=== PATIENT | male | born 1945 | race Caucasian/White ===

== ENCOUNTER 2022-01-01 23:08 | Emergency (ER) | payer OTHER ==
[~2022-01-01] VITALS: Ht 182.9 cm; Wt 68.0 kg
[2022-01-01 23:49] VITALS: BP_SYST 116
--- NOTE | 2022-01-02 00:36 | NUR ---
ANIBAL Kidd at bedside examining patient.
--- NOTE | 2022-01-02 01:34 | NUR ---
Pt complaining of genital pain Hx of urinary retention Suprapubic catheter noted Patency assessed 100CC a Addendum: 01/02/22 at 0140 by PB Sterile water 100CC pushed and 100CC withdrawn
[2022-01-02 03:20] LABS: BASOPHILS # (AUTO) 0.1 K/uL (0.0-0.2); BASOPHILS % (AUTO) 1.1 % (0.0-2.0); EOSINOPHILS # (AUTO) 0.1 K/uL (0.0-0.4); EOSINOPHILS % (AUTO) 1.9 % (0.0-4.0); HEMATOCRIT 34.2 % (36-54); HEMOGLOBIN 11.5 g/dL (14.0-18.0); LYMPHOCYTES % (AUTO) 12.8 % (20.5-51.5); MEAN CORPUSCULAR HEMOGLOBIN 31 pg (27-31); MEAN CORPUSCULAR HGB CONC 34 % (32-36); MEAN CORPUSCULAR VOLUME 91 fL (79.0-98.0); MONOCYTES # (AUTO) 0.5 K/uL (0.0-1.0); MONOCYTES % (AUTO) 6.5 % (1.7-9.3); NEUTROPHILS # (AUTO) 6.2 K/uL (1.8-7.7); NEUTROPHILS % (AUTO) 77.7 % (40.0-70.0); PLATELET COUNT (AUTO) 209 K/uL (130-430); RED BLOOD CELL COUNT(AUTO) 3.76 MIL/uL (4.2-6.2); RED CELL DISTRIBUTION WIDTH 14.1 % (9.0-15.0)
[2022-01-02 03:32] LABS: ANION GAP 6 (5-15); CALCIUM 8.2 mg/dL (8.4-11.0); CHLORIDE 104 mmol/L (98-107); CREATININE 1.18 mg/dL (0.55-1.30); GLUCOSE 114 mg/dL (70-99); POTASSIUM 4.5 mmol/L (3.5-5.1); SODIUM SERUM 136 mmol/L (136-145); UREA NITROGEN, BLOOD 30 mg/dL (8-21)
[2022-01-02 03:37] LABS: INR 1.2 (0.80-1.20)
[2022-01-02 03:42] LABS: ALANINE AMINOTRANSFERASE 18 U/L (12-78); ALBUMIN 3.2 g/dL (3.4-4.8); ASPARTATE AMINOTRANSFERASE 22 U/L (10-37); TOTAL BILIRUBIN 0.4 mg/dL (0.0-1.0)
--- NOTE | 2022-01-02 04:40 | NUR ---
Pt resting comfortably in bed AOX4 VSS Able to make needs known verbally responsive NAD at this time Will continue to monitor
[2022-01-02] MEDS ORDERED: MAG HYDROX/AL HYDROX/SIMETH 30 ML, LIDOCAINE VISCOUS 2% 15ML (PO) 15 ML, DICYCLOMINE HC... PO ONE ×3 (05:15)
[2022-01-02] MEDS ORDERED: MAG-AL HYDROX/SIMETH 30 ML UDC ONE (05:27)
[2022-01-02 06:01] LABS: BILIRUBIN,URINE NEGATIVE (NEGATIVE); BLOOD, URINE 3+ (NEGATIVE); CLARITY/URINE CLEAR (CLEAR); COLOR,URINE YELLOW (YELLOW); GLUCOSE,URINE NEGATIVE (NEGATIVE); KETONES,URINE NEGATIVE (NEGATIVE); LEUKOCYTE ESTERASE ,URINE 1+ (NEGATIVE); NITRITE, URINE POSITIVE (NEGATIVE); PROTEIN URINE 2+ (NEGATIVE); UROBILINOGEN,URINE 0.2 (0.2-1.0)
[2022-01-02 06:12] LABS: BACTERIA,URINE MANY /HPF (None Seen); CALCIUM OXALATE CRYSTALS,UR 0-10 /HPF (None Seen); WBC,URINE 20-50 /HPF (0-3)
[2022-01-02 06:13] LABS: URINE AMORPHOUS URATE 1+ /HPF (None Seen)
[2022-01-02 06:54] LABS: HEMATOCRIT 34.3 % (36-54); HEMOGLOBIN 11.5 g/dL (14.0-18.0); MEAN CORPUSCULAR HEMOGLOBIN 30 pg (27-31); MEAN CORPUSCULAR HGB CONC 34 % (32-36); MEAN CORPUSCULAR VOLUME 91 fL (79.0-98.0); PLATELET COUNT (AUTO) 207 K/uL (130-430); RED BLOOD CELL COUNT(AUTO) 3.79 MIL/uL (4.2-6.2); RED CELL DISTRIBUTION WIDTH 14.5 % (9.0-15.0); WHITE BLOOD COUNT (AUTO) 7.9 K/uL (4.8-10.8)
--- NOTE | 2022-01-02 07:15 | NUR ---
ASSUMED CARE OF PT AT THIS TIME. PT AWAITING LAB RESULTS FOR DISPO. PT REPORTS NAUSEA X FEW HRS, NO VOMITING. +LOWER ABD PAIN 02/03 WHICH PT STATES IS IMPROVED SINCE ARRIVING. PT STATES ABD PAIN IS CHRONIC. VSS. RESP EVEN AND UNLABORED. WILL CONT TO MONITOR
[2022-01-02] MEDS ORDERED: keflex PO (07:17)
--- NOTE | 2022-01-02 07:19 | NUR ---
PATIENT FAMILY CONTACT SISTER MAGO CAVANAUGH [phone]
[2022-01-02] MEDS ORDERED: ONDANSETRON 4 MG ODT TAB PO ONE (07:30)
[2022-01-02 07:31] VITALS: BP_SYST 137
--- NOTE | 2022-01-02 07:49 | NUR ---
DC INSTRUCTIONS DISCUSSED WITH PT AND ABX RX. QUESTIONS ANSWERED. VERB UNDERSTANDING. ADVISED TO FOLLOW UP WITH PMD IN 2-3 DAYS AT [place]. VSS. NO DISTRESS. PT IS STABLE FOR DC HOME. SISTER IS PICKING PT UP, ESCORTED TO LOBBY IN WHEELCHAIR
== END 2022-01-02 07:49 | disposition home or self-care (01) ==
LOC: SED 23:08
DX: T83.83XA Hemorrhage due to genitourinary prosthetic devices, implants and grafts, initial encounter (principal); N48.29 Other inflammatory disorders of penis; N32.0 Bladder-neck obstruction; I10 Essential (primary) hypertension; Z87.898 Personal history of other specified conditions
CPT/HCPCS: 36415; 71045; 72191; 74175; 74176; 76376; 80053; 81000; 83051; 83605; 84484; 85014; 85025; 85048; 85049; 85610; 85730; 86886; 86900; 86901; 87040; 87086; 99285; Q0162; Q9967; 87186-TC; 93005

== ENCOUNTER 2022-02-21 20:34 | Inpatient (IN) | payer OTHER ==
[~2022-02-21] VITALS: Ht 182.9 cm; Wt 64.4 kg
[~2022-02-21 20:34] MED LIST: keflex PO
[2022-02-21 20:58] VITALS: BP_SYST 135
--- NOTE | 2022-02-21 21:03 | NUR ---
BIB BLS FROM [facility] D/T TO HOSPICE CARE. 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 PT ALSO C/O NAUSEA.
--- NOTE | 2022-02-21 21:15 | NUR ---
[facility] AMB #[id number]. REPORT FROM EMT/ PT FROM [facility]. "combative with hospice nurse today". "HE THINKS (MORPHINE) NOT MAKING HIM FEEL GOOD. C/O NAUSEA, AND SOB ON ARRIVAL WITH EMT. PT YOCHA DEHE, SLOW TO ANSWER QUESTIONS, APPEARS ANXIOUS, HYPERVENTILATING. 16 [address] C[address] IN PL[address] WITH DEBORAH, CLOUDY URINE OBSERVED. EMT HEARD PT ON HIS CELLPHONE "WITH SISTER, THAT THEY TOOK ME AGAINST MY WILL". PT A/O X3 WITH YOCHA DEHE DIFFICULTIES.
[2022-02-21] MEDS ORDERED: DOCU-144 PO (21:42)
[2022-02-21] MEDS ORDERED: LORA-258 PO (21:42)
[2022-02-21] MEDS ORDERED: [UNRECOGNIZED DRUG - OTHER] (21:48)
[2022-02-21] MEDS ORDERED: HYDR-3610 PO (21:48)
[2022-02-21] MEDS ORDERED: TEMA15CA5 PO (21:48)
[2022-02-21] MEDS ORDERED: HYOS0.1275 PO (21:48)
--- NOTE | 2022-02-21 21:54 | NUR ---
COVID NASAL SWAB COLLECTED AND SENT TO LAB, LAB AT BEDSIDE WITH BLOOD COLLECTION. PORTABLE CXR DONE
[2022-02-21 21:57] LABS: BASOPHILS # (AUTO) 0.1 K/uL (0.0-0.2); BASOPHILS % (AUTO) 0.8 % (0.0-2.0); EOSINOPHILS % (AUTO) 0.6 % (0.0-4.0); HEMATOCRIT 39.3 % (36-54); HEMOGLOBIN 12.9 g/dL (14.0-18.0); LYMPHOCYTES # (AUTO) 1.6 K/uL (1.0-5.5); LYMPHOCYTES % (AUTO) 21.2 % (20.5-51.5); MEAN CORPUSCULAR HEMOGLOBIN 29 pg (27-31); MEAN CORPUSCULAR HGB CONC 33 % (32-36); MEAN CORPUSCULAR VOLUME 87 fL (79.0-98.0); MONOCYTES # (AUTO) 0.7 K/uL (0.0-1.0); MONOCYTES % (AUTO) 9.6 % (1.7-9.3); NEUTROPHILS # (AUTO) 5.2 K/uL (1.8-7.7); NEUTROPHILS % (AUTO) 67.8 % (40.0-70.0); PLATELET COUNT (AUTO) 146 K/uL (130-430); RED BLOOD CELL COUNT(AUTO) 4.52 MIL/uL (4.2-6.2); RED CELL DISTRIBUTION WIDTH 19.4 % (9.0-15.0); WHITE BLOOD COUNT (AUTO) 7.6 K/uL (4.8-10.8)
--- NOTE | 2022-02-21 22:00 | NUR ---
ALICIA, SISTER, CALLED FOR UPDATE [phone]
[2022-02-21 22:15] LABS: ANION GAP 11 (5-15); CALCIUM 9.2 mg/dL (8.4-11.0); CHLORIDE 101 mmol/L (98-107); GLUCOSE 111 mg/dL (70-99); POTASSIUM 4.5 mmol/L (3.5-5.1); SODIUM SERUM 135 mmol/L (136-145); UREA NITROGEN, BLOOD 24 mg/dL (8-21)
[2022-02-21 22:20] LABS: ALANINE AMINOTRANSFERASE 16 U/L (12-78); ALBUMIN 3.1 g/dL (3.4-4.8); ASPARTATE AMINOTRANSFERASE 19 U/L (10-37); TOTAL BILIRUBIN 1.1 mg/dL (0.0-1.0)
--- NOTE | 2022-02-22 00:08 | NUR ---
PT MOVED TO BED #4 FROM #H-2. REPORT TO ANTONIA PIERCE. PT STABLE
[2022-02-22] MEDS ORDERED: FUROSEMIDE 100 MG/10 ML VIAL IVP ONE (00:30)
--- NOTE | 2022-02-22 00:35 | NUR ---
MONO RN RETURN FROM CT SCAN VIA [facility] WITH TECH. GABRIEL BARBER AT [facility]
--- NOTE | 2022-02-22 01:06 | NUR ---
Patient in bed 4 at this time. Pt states SOB. Given Lasix at this time. Pt has mild tachypnea, yet on NC@2L. Pt has 16 Fr mauricio catheter from home. Normal skin color for ethnicity. Pt educated on hospice care.
--- NOTE | 2022-02-22 01:48 | NUR ---
Pt to CT at this time
--- NOTE | 2022-02-22 02:28 | NUR ---
Pt to bedside commode at this time.
--- NOTE | 2022-02-22 02:51 | NUR ---
Admit bed requested Patient will be admitted to care of . Admitted to TELEMETRY unit. Diagnosis CHF EXACERBATION Inpatient (Yes or No) YES Observation (Yes or No) NO Orientation concerns or request close to nursing station (Yes or No) NO Covid Status NEG On vent or bipap NO Isolation requirements NO Needs a sitter NO From Home (Yes or if No enter name of facility) YES Requires Dialysis (Yes or No) NO Med Rec Completed (Yes of No) YES
[2022-02-22] MEDS ORDERED: cefTRIAXone 1 GM in D5W 50 ML IV ONE (03:00)
[2022-02-22] MEDS ORDERED: AZITHROMYCIN 500 MG in NS 250 ML IV ONE (03:00)
[2022-02-22] MEDS ORDERED: HEPARIN 25,000 UNITS/D5W 250ML 250 ML IV PRN ×2 (03:30→18:00)
[2022-02-22] MEDS ORDERED: DOCUSATE SODIUM 100 MG CAPSULE PO ONE (03:30)
[2022-02-22 04:17] VITALS: BP_SYST 134
[2022-02-22] MEDS ORDERED: POTASSIUM CHLORIDE 20 MEQ TAB.PRT.SR PO PRN (04:30)
[2022-02-22] MEDS ORDERED: DOCUSATE SODIUM 100 MG CAPSULE PO PRN (04:30)
[2022-02-22] MEDS ORDERED: MAGNESIUM SULFATE 50 ML IV PRN (04:30)
[2022-02-22] MEDS ORDERED: ACETAMINOPHEN 325 MG TABLET PO PRN (04:30)
[2022-02-22] MEDS ORDERED: MUPIROCIN 2% TOPICAL OINTMENT 22 GM NS PRN (04:30)
[2022-02-22] MEDS ORDERED: MORPHINE 2 MG/ML INJ. SYRINGE IVP PRN ×2 (04:30)
[2022-02-22] MEDS ORDERED: ONDANSETRON HCL 4 MG/2 ML VIAL IVP PRN (04:30)
[2022-02-22] MEDS ORDERED: NALOXONE HCL 0.4 MG/ML AMP (NARCAN) IVP PRN ×2 (04:30)
--- NOTE | 2022-02-22 04:35 | NUR ---
Patient admitted to room 101 (a). Assessment completed SOB noted. O2 at 4 liters. No complaint of pain or discomfort. Will continue to monitor.
[2022-02-22 06:33] LABS: BASOPHILS % (AUTO) 0.7 % (0.0-2.0); EOSINOPHILS % (AUTO) 0.5 % (0.0-4.0); HEMOGLOBIN 12.2 g/dL (14.0-18.0); LYMPHOCYTES # (AUTO) 1.5 K/uL (1.0-5.5); LYMPHOCYTES % (AUTO) 21.2 % (20.5-51.5); MEAN CORPUSCULAR HEMOGLOBIN 29 pg (27-31); MEAN CORPUSCULAR HGB CONC 33 % (32-36); MEAN CORPUSCULAR VOLUME 87 fL (79.0-98.0); MONOCYTES # (AUTO) 0.6 K/uL (0.0-1.0); MONOCYTES % (AUTO) 8.2 % (1.7-9.3); NEUTROPHILS # (AUTO) 4.8 K/uL (1.8-7.7); NEUTROPHILS % (AUTO) 69.4 % (40.0-70.0); PLATELET COUNT (AUTO) 128 K/uL (130-430); RED BLOOD CELL COUNT(AUTO) 4.27 MIL/uL (4.2-6.2); RED CELL DISTRIBUTION WIDTH 18.9 % (9.0-15.0)
[2022-02-22 06:44] LABS: INR 1.4 (0.80-1.20); PROTHROMBIN TIME 13.5 SECS (9.5-12.5)
[2022-02-22 06:48] LABS: ANION GAP 11 (5-15); CALCIUM 9.4 mg/dL (8.4-11.0); CHLORIDE 101 mmol/L (98-107); CREATININE 1.28 mg/dL (0.55-1.30); GLUCOSE 107 mg/dL (70-99); SODIUM SERUM 137 mmol/L (136-145); UREA NITROGEN, BLOOD 25 mg/dL (8-21)
--- NOTE | 2022-02-22 06:49 | NUR ---
Patient educated on bilateral emboli in the lungs. Instructed to stay in bed. Patient refusing to stay in bed. Will continue to monitor.
--- NOTE | 2022-02-22 07:12 | NUR ---
Patient found bedside the bed on his knees. No injuries noted. Vital 97.9 78 22 143/84. Bed alarm was sounding when this nurse entered the room. This nurse instructed the patient to stay in the bed. Patient acknowledged teaching. Will continue to monitor.
[2022-02-22 08:00] VITALS: BP_SYST 135
--- NOTE | 2022-02-22 09:00 | NUR ---
MEDS DR BLANCO INFORMED OF LATEST PT, PTT AND INR. HE ORDERED TO STOP HEPARIN DRIP.
[2022-02-22] MEDS: ASPIRIN 81 MG TAB.CHEW PO SCH (09:23)
[2022-02-22] MEDS: CARVEDILOL 3.125 MG TABLET (COREG) PO SCH ×2 (09:23→20:11)
[2022-02-22] MEDS: FUROSEMIDE 40 MG/4 ML VIAL IVP SCH (09:24)
--- NOTE | 2022-02-22 09:45 | NUR ---
CONSULTATION PAGED/CALLED Reason for Consultation: [] Pulmonology Person Who was Notified: [] here in [facility]/Dr. Booth aware Consulting Physician: [] Dr. Booth Airport Operations Officer Specialty: []Pulmonary Ordering Physician: [Dr. Rainey
[2022-02-22 12:00] VITALS: BP_SYST 127
[2022-02-22] MEDS: BISACODYL 10 MG/SUPPOSITORY RC PRN (13:52)
--- NOTE | 2022-02-22 15:45 | NUR ---
ANXIETY SEEN PT CHANGING INTO HIS STREET CLOTHES, PT UNABLE TO GIVE REASON WHY HE WAS DOING IT. ALL LINENS CHANGED, [facility] G[facility] PROVIDED.
[2022-02-22 16:00] VITALS: BP_SYST 121
--- NOTE | 2022-02-22 16:30 | NUR ---
LEASING CONSULTANT AT BEDSIDE. U/S OF BOTH LUNGS DONE.
--- NOTE | 2022-02-22 17:17 | NUR ---
MD DR BLANCO IN THE NURSING STATION, AWARE OF CHEST ULTRASOUND RESULT
--- NOTE | 2022-02-22 17:23 | NUR ---
TOMAS YEE WAS CALLED, RE: US RESULTS. SPOKE TO MELANIE.
--- NOTE | 2022-02-22 17:30 | NUR ---
IV PT PULLED OUT HIS IV FROM RIGHT A/C, CONFUSED, STATED "IT'S JUST THERE FOR NOTHING". PT REORIENTED TO PURPOSE. WILL ATTEMPT IV INSERTION.
--- NOTE | 2022-02-22 17:52 | NUR ---
MD DR YEE RETURNED THE CALL. NEW ORDERS RECEIVED. PT TO BE STARTED ON HEPARIN DRIP.
--- NOTE | 2022-02-22 19:27 | NUR ---
PAGED DR. URBINA I SPOKE TO BETTY UNDERWOOD
[2022-02-22 20:00] VITALS: BP_SYST 126
[2022-02-22] MEDS: LORazepam 2 MG/ML VIAL IVP PRN (20:12)
[2022-02-22] MEDS ORDERED: HEPARIN SODIUM,PORCINE 5,000 UNITS/ML VIAL SUBCUT SCH (21:00)
[2022-02-22] MEDS ORDERED: HEPARIN SODIUM,PORCINE 2000 UNITS/0.4 ML BOLUS IVP PRN (21:15)
[2022-02-22] MEDS ORDERED: *HEPARIN PER PHARMACY XX ONE (21:15)
[2022-02-22] MEDS ORDERED: HEPARIN SODIUM,PORCINE 3000 UNITS/0.6 ML BOLUS IVP PRN (21:15)
[2022-02-22] MEDS ORDERED: HEPARIN SODIUM PORCINE IVP ONE (21:45)
[2022-02-22] MEDS ORDERED: HEPARIN 25,000 UNITS/D5W 250ML 250 ML IV ONE (22:10)
[2022-02-22] MEDS: HEPARIN 25,000 UNITS/D5W 250ML 250 ML IV PRN (22:15)
[2022-02-23] VITALS: BP_SYST 130
--- NOTE | 2022-02-23 01:30 | NUR ---
Patient in bed. Continues to climb out of the bed. No acute distress noted. Heparin drip infusing without difficulty. Will continue to monitor.
--- NOTE | 2022-02-23 01:37 | NUR ---
Dr. Booth made aware of thoracentesis scheduled for Friday.
--- NOTE | 2022-02-23 06:37 | NUR ---
Blood sugar recheck 136.
--- NOTE | 2022-02-23 07:09 | NUR ---
PTT pending. Will endorse to a.m. shift.
[2022-02-23 07:13] LABS: BASOPHILS % (AUTO) 0.3 % (0.0-2.0); EOSINOPHILS # (AUTO) 0.2 K/uL (0.0-0.4); EOSINOPHILS % (AUTO) 1.9 % (0.0-4.0); HEMATOCRIT 36.1 % (36-54); HEMOGLOBIN 11.9 g/dL (14.0-18.0); LYMPHOCYTES # (AUTO) 1.6 K/uL (1.0-5.5); LYMPHOCYTES % (AUTO) 18.6 % (20.5-51.5); MEAN CORPUSCULAR HEMOGLOBIN 29 pg (27-31); MEAN CORPUSCULAR HGB CONC 33 % (32-36); MEAN CORPUSCULAR VOLUME 87 fL (79.0-98.0); MONOCYTES # (AUTO) 0.6 K/uL (0.0-1.0); MONOCYTES % (AUTO) 7.2 % (1.7-9.3); NEUTROPHILS # (AUTO) 6.2 K/uL (1.8-7.7); PLATELET COUNT (AUTO) 129 K/uL (130-430); RED BLOOD CELL COUNT(AUTO) 4.16 MIL/uL (4.2-6.2); RED CELL DISTRIBUTION WIDTH 19.3 % (9.0-15.0); WHITE BLOOD COUNT (AUTO) 8.6 K/uL (4.8-10.8)
[2022-02-23 07:40] LABS: ANION GAP 10 (5-15); CALCIUM 9.2 mg/dL (8.4-11.0); CHLORIDE 100 mmol/L (98-107); CREATININE 1.19 mg/dL (0.55-1.30); GLUCOSE 90 mg/dL (70-99); POTASSIUM 3.2 mmol/L (3.5-5.1); SODIUM SERUM 139 mmol/L (136-145); UREA NITROGEN, BLOOD 27 mg/dL (8-21)
[2022-02-23 08:00] VITALS: BP_SYST 104
[2022-02-23] MEDS: CARVEDILOL 3.125 MG TABLET (COREG) PO SCH ×2 (08:16→21:00)
[2022-02-23] MEDS: FUROSEMIDE 40 MG/4 ML VIAL IVP SCH (08:17)
[2022-02-23] MEDS: ASPIRIN 81 MG TAB.CHEW PO SCH (08:17)
[2022-02-23] MEDS: LORazepam 2 MG/ML VIAL IVP PRN ×4 (08:18→22:59)
[2022-02-23 12:00] VITALS: BP_SYST 108
[2022-02-23 16:00] VITALS: BP_SYST 112
[2022-02-23] MEDS: HEPARIN 25,000 UNITS/D5W 250ML 250 ML IV PRN (18:13)
[2022-02-24 00:18] VITALS: BP_SYST 125
--- NOTE | 2022-02-24 03:51 | NUR ---
Pt alert to person. pt continues on Tele monitor pt rhythm v paced . Pt previous reading is also paced. 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 pt continues on 2l 02 sating 98%. Pt is incontinent of bladder and uses a supra pubic cath urine clean. Continues on heparin gtt. PTT labs pending . pt bp decreased held coreg. pt has increased anxiety adm ativan with positive effect. pt pulled iv out of arm. new Iv to right wrist.
[2022-02-24 08:00] VITALS: BP_SYST 108
--- NOTE | 2022-02-24 08:00 | NUR ---
OPENING NOTES: PATIENT RESTING IN BED. BREATHING EVEN AND NON LABORED TO O2 AT 2L/NC. HEPARIN DRIP INFUSING. BED LOCKED, ALARM ON AND IN LOWEST POSITION. FALL, SAFETY AND ASPIRATION MEASURES REINFORCED. CALL LIGHT WITHIN REACH.
[2022-02-24 08:18] LABS: BASOPHILS % (AUTO) 0.5 % (0.0-2.0); EOSINOPHILS # (AUTO) 0.3 K/uL (0.0-0.4); HEMATOCRIT 36.4 % (36-54); HEMOGLOBIN 11.9 g/dL (14.0-18.0); LYMPHOCYTES # (AUTO) 1.7 K/uL (1.0-5.5); LYMPHOCYTES % (AUTO) 19.8 % (20.5-51.5); MEAN CORPUSCULAR HEMOGLOBIN 28 pg (27-31); MEAN CORPUSCULAR HGB CONC 33 % (32-36); MEAN CORPUSCULAR VOLUME 87 fL (79.0-98.0); MONOCYTES # (AUTO) 0.6 K/uL (0.0-1.0); MONOCYTES % (AUTO) 7.2 % (1.7-9.3); NEUTROPHILS # (AUTO) 5.9 K/uL (1.8-7.7); NEUTROPHILS % (AUTO) 69.5 % (40.0-70.0); PLATELET COUNT (AUTO) 136 K/uL (130-430); RED CELL DISTRIBUTION WIDTH 19.3 % (9.0-15.0); WHITE BLOOD COUNT (AUTO) 8.5 K/uL (4.8-10.8)
--- NOTE | 2022-02-24 08:40 | NUR ---
Dietitian Recommendations - continue cardiac/low fat diet per MD order - consider Ensure Enlive once/d to supplement diet Please refer to nutrition assessment for details. KALINA MONTERO
[2022-02-24] MEDS: ASPIRIN 81 MG TAB.CHEW PO SCH (08:47)
[2022-02-24] MEDS: CARVEDILOL 3.125 MG TABLET (COREG) PO SCH ×2 (08:47→20:21)
[2022-02-24] MEDS: FUROSEMIDE 40 MG/4 ML VIAL IVP SCH (08:52)
[2022-02-24 09:01] LABS: CALCIUM 8.9 mg/dL (8.4-11.0); GLUCOSE 83 mg/dL (70-99); UREA NITROGEN, BLOOD 25 mg/dL (8-21)
[2022-02-24 09:42] LABS: ANION GAP 9 (5-15); CHLORIDE 99 mmol/L (98-107); SODIUM SERUM 138 mmol/L (136-145)
[2022-02-24 10:27] LABS: POTASSIUM 2.9 mmol/L (3.5-5.1)
--- NOTE | 2022-02-24 10:46 | NUR ---
ATTENDING MD DR ALONZO WAS CALLED, RE: LOW K LEVEL OF 2.9.
--- NOTE | 2022-02-24 11:00 | NUR ---
HIGH ALERT NOTE: Called Dr. ALONZO back [phone] at identified within the medical roster to verify physician authenticity. ORDER KDUR 60 MEQ PO ONCE. REPORTED TO DR. ALONZO THE K 2.9.
[2022-02-24 12:00] VITALS: BP_SYST 106
[2022-02-24] MEDS ORDERED: POTASSIUM CHLORIDE 20 MEQ TAB.PRT.SR PO ONE (12:00)
[2022-02-24] MEDS ORDERED: LACTULOSE 20 GM/30 ML UDC PO ONE (14:30)
--- NOTE | 2022-02-24 15:21 | NUR ---
CM: DCP done with Abhijti, dtr: stated pt is DNR and was with [facility] . She will fax the signed POA to CM dept in am. RN and CN made aware.
--- NOTE | 2022-02-24 15:40 | NUR ---
RN NOTE/FALL: PATIENT CLIMBED OUT OF BED W/ BED ALARM ON. THE CHARGE NURSE/CN (REILLY) WENT TO THE ROOM AND SAW THE PATIENT STANDING WHILE HOLDING THE BED RAILS. THE CN TOLD THE PATIENT NOT TO MOVE BUT SLOWLY HE SAT ON THE FLOOR. THE CN ASSISTED HIM TO THE CHAIR AND BACK TO THE BED. ASSESSMENT DONE AND NO INJURY NOTED. STABLE VITAL SIGNS. INCIDENT HAPPENED AT 1540.
[2022-02-24 16:00] VITALS: BP_SYST 103
--- NOTE | 2022-02-24 16:35 | NUR ---
DR. ALONZO AND ORTIZ, the daughter INFORMED (RE: Fall): DR. ALONZO INFORMED ABOUT THE FALL INCIDENT (AT 1635). NO NEW ORDER MADE. SPOKE TO THE DAUGHTER ABOUT THE INCIDENT AT 1640)
[2022-02-24 19:00] VITALS: BP_SYST 113
--- NOTE | 2022-02-24 19:20 | NUR ---
CLOSING NOTES: PATIENT RESTING IN BED. NO S/S OF ACUTE DISTRESS NOTED. BED LOCKED, ALARM ON AND IN LOWEST POSITION. FALL AND SAFETY MEASURES PROVIDED. CALL LIGHT WITHIN REACH. NEEDS MET THROUGHOUT SHIFT.
[2022-02-24 20:00] VITALS: BP_SYST 113
--- NOTE | 2022-02-24 20:00 | NUR ---
CRITICAL LAB: SULAIMAN from Laboratory called with critical lab value K 2.9. Medical record number and patient name verified. Read back of values done. DR. ALONZO notified of value. NEW order given at this time. Addendum: 02/24/22 at 2002 by Kasey Aguayo RN WRONG ENTRY:
[2022-02-24] MEDS: LACTULOSE 20 GM/30 ML UDC PO SCH (20:20)
[2022-02-24] MEDS: DOCUSATE SODIUM 100 MG CAPSULE PO SCH (20:21)
[2022-02-24] MEDS: ZOLPIDEM TARTRATE 5 MG TABLET PO PRN (20:22)
--- NOTE | 2022-02-24 20:25 | NUR ---
Morphine 2mg IV push witness bu Carlos Ritter Rn for administration
[2022-02-24] MEDS: LORazepam 2 MG/ML VIAL IVP PRN (23:44)
[2022-02-25] MEDS ORDERED: HEPARIN 25,000 UNITS/D5W 250ML 250 ML IV ONE (01:51)
[2022-02-25 06:00] VITALS: BP_SYST 110
--- NOTE | 2022-02-25 06:52 | NUR ---
TOMAS COLEMAN CONCRETE FINISHER APPRENTICE DR BEDOLLA WAS CALLED RE: TO CONTINUE HEPARIN OR NOT, THORACENTESIS ORDERED TODAY. SPOKE TO MAGEN.
[2022-02-25 07:41] VITALS: BP_SYST 104
[2022-02-25 07:46] LABS: BASOPHILS % (AUTO) 0.5 % (0.0-2.0); EOSINOPHILS # (AUTO) 0.3 K/uL (0.0-0.4); EOSINOPHILS % (AUTO) 4.4 % (0.0-4.0); HEMATOCRIT 35.2 % (36-54); HEMOGLOBIN 11.5 g/dL (14.0-18.0); LYMPHOCYTES # (AUTO) 1.8 K/uL (1.0-5.5); LYMPHOCYTES % (AUTO) 24.7 % (20.5-51.5); MEAN CORPUSCULAR HEMOGLOBIN 28 pg (27-31); MEAN CORPUSCULAR HGB CONC 33 % (32-36); MEAN CORPUSCULAR VOLUME 87 fL (79.0-98.0); MONOCYTES # (AUTO) 0.7 K/uL (0.0-1.0); MONOCYTES % (AUTO) 9.4 % (1.7-9.3); NEUTROPHILS # (AUTO) 4.5 K/uL (1.8-7.7); PLATELET COUNT (AUTO) 139 K/uL (130-430); RED BLOOD CELL COUNT(AUTO) 4.07 MIL/uL (4.2-6.2); RED CELL DISTRIBUTION WIDTH 18.7 % (9.0-15.0); WHITE BLOOD COUNT (AUTO) 7.3 K/uL (4.8-10.8)
[2022-02-25] MEDS: FUROSEMIDE 40 MG/4 ML VIAL IVP SCH (09:00)
[2022-02-25] MEDS: CARVEDILOL 3.125 MG TABLET (COREG) PO SCH ×2 (09:00→21:11)
[2022-02-25 09:19] LABS: ALANINE AMINOTRANSFERASE 11 U/L (12-78); ANION GAP 8 (5-15); ASPARTATE AMINOTRANSFERASE 21 U/L (10-37); CALCIUM 8.9 mg/dL (8.4-11.0); CHLORIDE 103 mmol/L (98-107); CREATININE 1.15 mg/dL (0.55-1.30); GLUCOSE 84 mg/dL (70-99); POTASSIUM 3.4 mmol/L (3.5-5.1); SODIUM SERUM 143 mmol/L (136-145); TOTAL BILIRUBIN 1.2 mg/dL (0.0-1.0); UREA NITROGEN, BLOOD 26 mg/dL (8-21)
--- NOTE | 2022-02-25 09:31 | NUR ---
PER ANTONIA GARCIA, INFORMED RADIOLOGY THAT US THORACENTESIS IS ON HOLD. THERE IS ONLY LITTLE FLUID IN THE LUNGS, PER TOMAS QUEEN. SPOKE TO SHUN IN RADIOLOGY.
[2022-02-25] MEDS: ASPIRIN 81 MG TAB.CHEW PO SCH (09:40)
[2022-02-25] MEDS: DOCUSATE SODIUM 100 MG CAPSULE PO SCH ×2 (09:40→21:10)
[2022-02-25] MEDS: LACTULOSE 20 GM/30 ML UDC PO SCH ×3 (09:41→21:10)
[2022-02-25] MEDS ORDERED: COR3.125 PO (11:08)
[2022-02-25] MEDS ORDERED: ASA81 PO (11:08)
[2022-02-25] MEDS ORDERED: APIX5TAB4 PO (11:08)
[2022-02-25] MEDS ORDERED: FURO-149 PO (11:08)
[2022-02-25 12:10] VITALS: BP_SYST 106
[2022-02-25] MEDS: BISACODYL 10 MG/SUPPOSITORY RC PRN (13:29)
--- NOTE | 2022-02-25 14:12 | NUR ---
CM: Code status changed to DNR per dr. Rainey. Dtr/Abhijit brought in the POA documents, Gina/RN aware. I discussed dcp home /resume hospice care with dtr. She stated that she can not take pt home and wanting pt to snf with hospice care. I spoke with [facility], stated the contracted snf is [facility] where is no bed available. Dtr wants pt in local SNF by [facility] and willing to change hospice company to one that works with the accepting snf. Dtr preferred #1 [facility],#2 [facility]. She will get more info from [facility]. CM faxed FS to [facility] fax# [phone], tel # [phone]. ROSALINE Pan made aware and she will continue the process.
--- NOTE | 2022-02-25 16:07 | NUR ---
KID CLUB ATTENDANT/DISCHARGE PLANNING ACSW Viviane contacted [facility], according to Bhumika they can do an JEROME with [facility], but placement would be private pay with deposit due upfront. She stated at this time she would decline referral. ACSW Viviane received call back from with [facility] requesting additional documents. ACSW faxed H & P and labs to . ACSW will continue to be available as needed
[2022-02-25 16:30] VITALS: BP_SYST 110
--- NOTE | 2022-02-25 18:43 | NUR ---
PER RN DAISHA, I WAS ORDERED TO FAX TO [facility] THE H AND P/ THE HOSPICE ORDER ATTENTION TO VILLA.
[2022-02-25 20:00] VITALS: BP_SYST 94
--- NOTE | 2022-02-25 20:00 | NUR ---
PATIENT RESTING IN BED, A/O X 2 WITH CONFUSION OBSERVED. BREATHING IS EVEN AND NON-LABORED, PT NOT WEARING HIS NASAL CANNULA WITH SPO2 OF 97-98%. HEPARIN DRIP ALREADY STOPPED BY OUTGOING RN. NO S/S OF ACTIVE BLEEDING. FALL, SAFETY AND ASPIRATION MEASURES REINFORCED. CALL LIGHT WITHIN REACH. Addendum: 02/26/22 at 0318 by [facility] housecalls nurse 21:00. PT'S POTASSIUM LEVEL EARLIER TODAY WAS 3.4, PT REFUSED PRN POTASSIUM SUPPLEMENT IF POTASSIUM IS BELOW 3.5. HE ALSO REFUSED THE LACTULOSE. HEAD MEN'S GOLF COACH EXPLAINED THE IMPORTANCE OF TAKING THE ORDERED MEDICATION ESPECIALLY PT HAD A HARD STOOL PER OUTGOING RN AND PT STILL REFUSED LACTULOSE BUT TOOK THE COLACE ORDERED.
[2022-02-25] MEDS: APIXABAN 2.5 MG TABLET PO SCH (21:10)
[2022-02-26] VITALS: BP_SYST 103
[2022-02-26] MEDS: ZOLPIDEM TARTRATE 5 MG TABLET PO PRN (00:21)
--- NOTE | 2022-02-26 03:33 | NUR ---
PATIENT ASSISTED TO THE BATHROOM. UNSTEADY GAIT OBSERVED. FALL PRECAUTIONS MAINTAINED.
[2022-02-26 04:11] VITALS: BP_SYST 104
[2022-02-26 06:59] LABS: BASOPHILS % (AUTO) 0.3 % (0.0-2.0); EOSINOPHILS # (AUTO) 0.2 K/uL (0.0-0.4); EOSINOPHILS % (AUTO) 2.8 % (0.0-4.0); HEMATOCRIT 33.6 % (36-54); HEMOGLOBIN 11.1 g/dL (14.0-18.0); LYMPHOCYTES # (AUTO) 1.5 K/uL (1.0-5.5); LYMPHOCYTES % (AUTO) 19.3 % (20.5-51.5); MEAN CORPUSCULAR HEMOGLOBIN 28 pg (27-31); MEAN CORPUSCULAR HGB CONC 33 % (32-36); MEAN CORPUSCULAR VOLUME 86 fL (79.0-98.0); MONOCYTES # (AUTO) 0.6 K/uL (0.0-1.0); MONOCYTES % (AUTO) 8.5 % (1.7-9.3); NEUTROPHILS # (AUTO) 5.2 K/uL (1.8-7.7); NEUTROPHILS % (AUTO) 69.1 % (40.0-70.0); PLATELET COUNT (AUTO) 151 K/uL (130-430); RED BLOOD CELL COUNT(AUTO) 3.91 MIL/uL (4.2-6.2); RED CELL DISTRIBUTION WIDTH 18.7 % (9.0-15.0); WHITE BLOOD COUNT (AUTO) 7.6 K/uL (4.8-10.8)
[2022-02-26 07:34] LABS: ANION GAP 8 (5-15); CALCIUM 8.6 mg/dL (8.4-11.0); CHLORIDE 103 mmol/L (98-107); CREATININE 0.95 mg/dL (0.55-1.30); GLUCOSE 90 mg/dL (70-99); POTASSIUM 3.7 mmol/L (3.5-5.1); SODIUM SERUM 141 mmol/L (136-145); UREA NITROGEN, BLOOD 28 mg/dL (8-21)
[2022-02-26 07:52] VITALS: BP_SYST 103
--- NOTE | 2022-02-26 09:00 | NUR ---
CRIPPLE WORKER/HOSPICE [facility] Viviane contacted patients daughter Sherry to obtain update on family's plans for hospice care. She shared she has decided to move forward with [facility]. She also shared she is looking for board and care facilities due to being unable to have patient in the home continuous churn buttermaker. Sherry stated she would like to take patient home while they work on established placement in a board and care, and reiterated this would only be short term. According to Sherry, she shared hospital bed, oxygen and other equipment is still in patient's home from previous hospice provider. [facility] provided update to Handstitching Machine Collar Feller Victor Hugo. Addendum: 02/26/22 at 1535 by Viviane Ballard [facility] Viviane consulted with Kwaku with [facility] throughout the day regarding plan of care for patient. She shared necessary equipment for patient would be ordered, as the previous hospice provider would need to remove their equipment from patient's home due to no longer service patient. She also shared hospice provider would be responsible for transportation to home and then to board and care. shared she was awaiting signatures on consents for care from patient's daughter. She shared when they are received, transportation would be scheduled.
[2022-02-26] MEDS: FUROSEMIDE 40 MG/4 ML VIAL IVP SCH (09:13)
[2022-02-26] MEDS: APIXABAN 2.5 MG TABLET PO SCH ×2 (09:13→20:52)
[2022-02-26] MEDS: ASPIRIN 81 MG TAB.CHEW PO SCH (09:14)
[2022-02-26] MEDS: CARVEDILOL 3.125 MG TABLET (COREG) PO SCH ×2 (09:14→20:51)
[2022-02-26] MEDS: LACTULOSE 20 GM/30 ML UDC PO SCH ×2 (09:14→20:50)
[2022-02-26] MEDS: DOCUSATE SODIUM 100 MG CAPSULE PO SCH ×2 (09:14→20:50)
--- NOTE | 2022-02-26 10:52 | NUR ---
pt now talking to dtr on the phone.
--- NOTE | 2022-02-26 13:25 | NUR ---
PT'S DTR AT BEDSIDE, WAITING FOR DCP TO TALK TO HER.
[2022-02-26 15:46] VITALS: BP_SYST 100
--- NOTE | 2022-02-26 15:48 | NUR ---
ASSISTED PT FOR THE THIRD TIME TO THE BATHROOM, PT IS SOB ON EXERTION BUT O2 SAT IS STILL HIGH. VITALS WNL. DID NOT REQUIRE O2 SUPPLEMENT.
--- NOTE | 2022-02-26 16:30 | NUR ---
MAIL DISTRIBUTION CLERK ACSW Viviane received a call from with [facility] stating they would not be transportation patient home today. She also shared the patient's daughter Sherry informed her Board and Care would be assessing patient for appropriateness on 02/27. ACSW will continue to be available as needed
--- NOTE | 2022-02-26 19:27 | NUR ---
PT HAS BEEN STABLE THE WHOLE SHIFT, NO C/O PAIN. STILL HAVING SOME SOB ON EXERTION ( WALKING FROM BED TO BATHROOM AND BACK ). BUT O2 SAT WAS WNL. ENDORSED TO NIGHT NURSE.
[2022-02-26 20:18] VITALS: BP_SYST 91
--- NOTE | 2022-02-26 23:16 | NUR ---
Patient blood pressure improved for transportation with prn hydralazine. August Avelar RN Addendum: 02/26/22 at 2317 by One soybean grower incorrect patient ignore above note
[2022-02-26] MEDS: BISACODYL 10 MG/SUPPOSITORY RC PRN (23:43)
[2022-02-27 01:39] VITALS: BP_SYST 117
--- NOTE | 2022-02-27 03:45 | NUR ---
NOTES; ENDORSED BY CHRISTI RN TO CONTINUE CONTINUITY OF CARE -Pt is asleep. No s/s any pain,sob,or any acute distress noted. Pt is on 2L n/c oxy continuously. Suprapubic catheter w/ gravity drains yellow urine output. Bed alarmed, side rails x3, call light w/in reach. Cont to monitor pt.
--- NOTE | 2022-02-27 04:42 | NUR ---
ROUNDS: -Pt awakes, resting in bed comfortably. No s/s any pain,sob,or any acute distress noted. Pt is on 2L n/c oxy continuously. Suprapubic catheter w/ gravity drains yellow urine output. Bed alarmed, side rails x3, call light w/in reach. Cont to monitor pt.
--- NOTE | 2022-02-27 06:31 | NUR ---
CLOSING NOTES; -Pt awakes, resting in bed comfortably. Pt is forgetfulness regarding repeated asking when pt can leave this place. Reminded pt that case technician will arrange with family regarding discharge planning. No s/s any pain,sob,or any acute distress noted. Pt is on 2L n/c oxy continuously. Suprapubic catheter w/ gravity drains yellow urine output. Bed alarmed, side rails x3, call light w/in reach. Will endorse to next nurse to cont care.
[2022-02-27 08:21] LABS: ANION GAP 9 (5-15); CALCIUM 8.4 mg/dL (8.4-11.0); CHLORIDE 104 mmol/L (98-107); CREATININE 0.87 mg/dL (0.55-1.30); GLUCOSE 98 mg/dL (70-99); POTASSIUM 3.6 mmol/L (3.5-5.1); SODIUM SERUM 141 mmol/L (136-145); UREA NITROGEN, BLOOD 34 mg/dL (8-21)
[2022-02-27 08:40] LABS: BASOPHILS % (AUTO) 0.2 % (0.0-2.0); EOSINOPHILS # (AUTO) 0.1 K/uL (0.0-0.4); EOSINOPHILS % (AUTO) 1.9 % (0.0-4.0); HEMATOCRIT 32.4 % (36-54); HEMOGLOBIN 10.7 g/dL (14.0-18.0); LYMPHOCYTES # (AUTO) 0.9 K/uL (1.0-5.5); LYMPHOCYTES % (AUTO) 13.2 % (20.5-51.5); MEAN CORPUSCULAR HEMOGLOBIN 28 pg (27-31); MEAN CORPUSCULAR HGB CONC 33 % (32-36); MEAN CORPUSCULAR VOLUME 86 fL (79.0-98.0); MONOCYTES # (AUTO) 0.6 K/uL (0.0-1.0); MONOCYTES % (AUTO) 9.7 % (1.7-9.3); NEUTROPHILS # (AUTO) 4.9 K/uL (1.8-7.7); PLATELET COUNT (AUTO) 152 K/uL (130-430); RED BLOOD CELL COUNT(AUTO) 3.79 MIL/uL (4.2-6.2); RED CELL DISTRIBUTION WIDTH 18.6 % (9.0-15.0); WHITE BLOOD COUNT (AUTO) 6.5 K/uL (4.8-10.8)
[2022-02-27] MEDS: LACTULOSE 20 GM/30 ML UDC PO SCH (10:00)
[2022-02-27] MEDS: ASPIRIN 81 MG TAB.CHEW PO SCH (10:00)
[2022-02-27] MEDS: DOCUSATE SODIUM 100 MG CAPSULE PO SCH (10:03)
[2022-02-27] MEDS: CARVEDILOL 3.125 MG TABLET (COREG) PO SCH (10:03)
[2022-02-27] MEDS: FUROSEMIDE 40 MG/4 ML VIAL IVP SCH (10:04)
[2022-02-27] MEDS: APIXABAN 2.5 MG TABLET PO SCH (10:06)
--- NOTE | 2022-02-27 13:07 | NUR ---
KNOWLEDGE MANAGEMENT CONSULTANT/DISCHARGE ACSW Viviane received confirmation from with [facility] that the patient will be discharging home with hospice. Transport is scheduled for 13:30-14:30 today. Update provided to assigned RN Kenyatta
[2022-02-27 13:44] VITALS: BP_SYST 100
== END 2022-02-27 17:28 | disposition home or self-care (01) | DRG 280 ==
LOC: SED 20:34 → STU 02-22 02:47
PROVIDERS: ADMIT Family Medicine; ATTEND Family Medicine
DX: I11.0 Hypertensive heart disease with heart failure (principal); I26.09 Other pulmonary embolism with acute cor pulmonale; I21.4 Non-ST elevation (NSTEMI) myocardial infarction; N17.0 Acute kidney failure with tubular necrosis; J96.01 Acute respiratory failure with hypoxia; I50.43 Acute on chronic combined systolic (congestive) and diastolic (congestive) heart failure; E44.1 Mild protein-calorie malnutrition; E87.2 Acidosis; I48.20 Chronic atrial fibrillation, unspecified; Z68.1 Body mass index [BMI] 19.9 or less, adult; I42.0 Dilated cardiomyopathy; D64.9 Anemia, unspecified; Z20.822 Contact with and (suspected) exposure to COVID-19; Z66 Do not resuscitate; E80.6 Other disorders of bilirubin metabolism; Z95.2 Presence of prosthetic heart valve; Z95.810 Presence of automatic (implantable) cardiac defibrillator; Z51.5 Encounter for palliative care
CPT/HCPCS: 36415; 71045; 71275; 76376; 76604; 80048; 80053; 83036; 83605; 83735; 83880; 84484; 85025; 85610-TC; 85730-TC; 86480; 93005; 93306; 96374; 99285; G0378; J1644; J1940; J2060; J2270; Q9967